=== PATIENT | male | born 1975 | race Caucasian/White ===

== ENCOUNTER 2017-04-02 02:39 | Emergency (ER) | payer OTHER ==
[2017-04-02 03:05] VITALS: BP 143/91; PULSE 80; TEMP 97.8; BMI 21.1
--- NOTE | 2017-04-02 03:08 | PDOC ---
History of Present Illness - General Chief Complaint: Injury Stated Complaint: LFT ELBOW INJURY-[employer] Time Seen by Provider: 04/02/17 02:57 - History of Present Illness Initial Comments: 04/02/17 03:06 CHIEF COMPLAINT: left elbow HISTORY OF PRESENT ILLNESS: 41 yo M [employer] with hx of asthma presents to ED s/p "hitting my left elbow on a car." Patient reports he "can do everything and move my arm without pain, but earlier when I accidentally hit my elbow the wrong way, it really hurt." No recent travel or sick contacts. PAST MEDICAL HISTORY: Denies past medical history FAMILY HISTORY: Denies SOCIAL HISTORY: Denies tobacco, alcohol, illicit drug use. SURGICAL HISTORY: Denies ALLERGIES: No known drug allergies REVIEW OF SYSTEMS General/Constitutional: Denies fever or chills. Denies weakness, weight change. HEENT: Denies change in vision. Denies ear pain or discharge. Denies sore throat. Cardiovascular: Denies chest pain or shortness of breath. Respiratory: Denies cough, wheezing, or hemoptysis. Gastrointestinal: Denies nausea, vomiting, diarrhea or constipation. Denies rectal bleeding. Genitourinary: Denies dysuria, frequency, or change in urination. Musculoskeletal: Denies joint or muscle swelling or pain. Denies neck or back pain. Skin and breasts: Denies rash or easy bruising. PHYSICAL EXAM General Appearance: Well-appearing, appropriately dressed. No apparent distress , no intoxication. HEENT: EOMI, PERRLA, normal ENT inspection, normal voice, TMs normal, pharynx normal. No conjunctival pallor. No photophobia, scleral icterus. Neck: Supple. Trachea midline. No tenderness, rigidity, carotid bruit, stridor , lymphadenopathy, or thyromegaly. Respiratory/Chest: Lungs CTAB. No shortness of breath, chest tenderness, respiratory distress, accessory muscle use. No crackles, rales, rhonchi, stridor , wheezing, dullness Cardiovascular: RRR. S1, S2. No JVD, murmur, bradycardia, tachycardia. Vascular Pulses: Dorsalis-Pedis (R): 2+, Dorsalis-Pedis (L): 2+ Gastrointestinal/Abdominal: Normal bowel sounds. Abdomen soft, non-distended. No tenderness or rebound tenderness. No organomegaly, pulsatile mass, guarding , hernia, hepatomegaly, splenomegaly. Lymphatic: No adenopathy, tenderness. Musculoskeletal/Extremities: Normal inspection. FROM of all extremities, normal capillary refill. Pelvis Stable. No CVA tenderness. No tenderness to extremities, pedal edema, swelling, erythema or deformity. Integumentary: Appropriate color, dry, warm. 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 Fully oriented, alert. Appropriate mood/affect. Motor strength 5/5. No appreciable EOM palsy, facial droop or sensory deficit. Past History - Past Medical History Allergies/Adverse Reactions: Allergies Allergy/AdvReac Type Severity Reaction Status Date / Time No Known Allergies Allergy Verified 04/02/17 03:24 Home Medications: Ambulatory Orders Albuterol Sulfate Inhaler - [Ventolin Hfa Inhaler -] 1 puff IH PRN PRN 04/02/17 Ibuprofen 600 mg PO TID PRN #21 tablet 04/02/17 Asthma: Yes - Immunization History Immunization Up to Date: Yes - Psycho/Social/Smoking Cessation Hx Anxiety: No Suicidal Ideation: No Smoking History: Never smoked Have you smoked in the past 12 months: No Information on smoking cessation initiated: No Hx Alcohol Use: No Drug/Substance Use Hx: No Substance Use Type: Alcohol *Physical Exam - Vital Signs Last Vital Signs Temp Pulse Resp BP Pulse Ox 97.8 F 80 16 143/91 97 04/02/17 03:03 04/02/17 03:03 04/02/17 03:03 04/02/17 03:03 04/02/17 03:03 ED Treatment Course - RADIOLOGY Radiology Studies Ordered: Category Date Time Status ELBOW-LEFT [RAD] Stat Radiology 04/02/17 03:06 Ordered Medical Decision Making - Medical Decision Making 04/02/17 03:08 41 yo M [employer] with hx of asthma presents to ED s/p "hitting my left elbow on a car." -L elbow x-ray Patient refuses pain medication at this time, stating "it only hurts when I hit it the wrong way." *DC/Admit/Observation/Transfer Diagnosis at time of Disposition: Elbow injury - Discharge Dispostion Disposition: HOME Condition at time of disposition: Stable Admit: No - Prescriptions Prescriptions: Ibuprofen 600 mg PO TID PRN #21 tablet PRN Reason: Pain - Referrals Referrals: Stewart Beach MD [Staff Physician] - - Patient Instructions Printed Discharge Instructions: DI for Elbow Pain Additional Instructions: Please take medication as prescribed. If your pain persists past 3-4 days, please follow up with orthopedics for further evaluation (referral provided). If you experience any worsening pain; redness, warmth, or swelling to your elbow , or develop any fever, nausea, vomiting, or any new or worsening symptoms, please return to the ER.
--- NOTE | 2017-04-02 03:08 | PDOC ---
*Physical Exam - Vital Signs Last Vital Signs Temp Pulse Resp BP Pulse Ox 97.8 F 80 16 143/91 97 04/02/17 03:03 04/02/17 03:03 04/02/17 03:03 04/02/17 03:03 04/02/17 03:03 Medical Decision Making - Medical Decision Making 04/02/17 03:08 agree with care from AMARIS Hoffman *DC/Admit/Observation/Transfer Diagnosis at time of Disposition: Elbow injury - Discharge Dispostion Disposition: HOME - Prescriptions Prescriptions: Ibuprofen 600 mg PO TID PRN #21 tablet PRN Reason: Pain - Referrals Referrals: Stewart Beach MD [Staff Physician] - - Patient Instructions Printed Discharge Instructions: DI for Elbow Pain Additional Instructions: Please take medication as prescribed. If your pain persists past 3-4 days, please follow up with orthopedics for further evaluation (referral provided). If you experience any worsening pain; redness, warmth, or swelling to your elbow , or develop any fever, nausea, vomiting, or any new or worsening symptoms, please return to the ER.
== END 2017-04-02 04:31 | disposition home or self-care (01) ==
LOC: JER 02:39
DX: S59.802A Other specified injuries of left elbow, initial encounter (principal); V48.3XXA Unspecified car occupant injured in noncollision transport accident in nontraffic accident, initial encounter; Y92.488 Other paved roadways as the place of occurrence of the external cause; Y99.0 Civilian activity done for income or pay; Y93.89 Activity, other specified
CPT/HCPCS: 73070-TC-LT; 99282-25

== ENCOUNTER 2017-06-17 04:02 | Emergency (ER) | payer OTHER ==
[2017-06-17] MEDS ORDERED: KETOROLAC TROMETHAMINE 60 MG/2 ML VIAL IM ONE (04:18)
[2017-06-17] MEDS ORDERED: KETOROLAC TROMETHAMINE 60 MG/2 ML VIAL ONE (04:20)
[2017-06-17 04:21] VITALS: BP 96/63; PULSE 77; TEMP 98.1; BMI 34.5
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
== END 2017-06-17 05:50 | disposition home or self-care (01) ==
LOC: JER 04:02
PROC: 3E0233Z Introduction of Anti-inflammatory into Muscle, Percutaneous Approach (ICD-10-PCS; principal; 2017-06-17)
DX: S46.811A Strain of other muscles, fascia and tendons at shoulder and upper arm level, right arm, initial encounter (principal); X50.0XXA Overexertion from strenuous movement or load, initial encounter; X50.9XXA Other and unspecified overexertion or strenuous movements or postures, initial encounter; Y93.F9 Activity, other caregiving; Y92.89 Other specified places as the place of occurrence of the external cause; Y99.0 Civilian activity done for income or pay
CPT/HCPCS: 73030-TC-RT; 99282-25

== ENCOUNTER 2018-03-22 03:22 | Emergency (ER) | payer OTHER ==
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
[2018-03-22 05:46] VITALS: BP 136/79; PULSE 81; TEMP 98.2; BMI 26.4
== END 2018-03-22 05:56 | disposition home or self-care (01) ==
LOC: JER 03:22
DX: S93.491A Sprain of other ligament of right ankle, initial encounter (principal); W18.30XA Fall on same level, unspecified, initial encounter; Y35.811A Legal intervention involving manhandling, law enforcement official injured, initial encounter; Y93.89 Activity, other specified; Y92.89 Other specified places as the place of occurrence of the external cause; Y99.0 Civilian activity done for income or pay
CPT/HCPCS: 73610-TC-RT-FY; 73630-TC-RT-FY; 99281-25

== ENCOUNTER 2018-04-23 03:19 | Emergency (ER) | payer OTHER ==
[2018-04-23 03:54] VITALS: BP 132/96; PULSE 93; TEMP 98.5; BMI 35.2
[2018-04-23] MEDS ORDERED: TETANUS AND DIPHTHERIA TOXOID 0.5 ML DISP.SYRIN IM ONE (04:00)
[2018-04-23] MEDS ORDERED: AMOX TR/POT CLAV 875MG/125MG TABLETS (FP) PO ONE (04:00)
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
[2018-04-23] MEDS ORDERED: AMOX TR/POT CLAV 875MG/125MG TABLETS (FP) ONE (04:07)
[2018-04-24 06:06] LABS: HEPATITIS B CORE ANTIBODY,IGM Negative (Negative)
[2018-04-25 00:07] LABS: HEP B CORE AB, IGM Negative (Negative); HEP B CORE AB, TOT Negative (Negative)
== END 2018-04-23 05:05 | disposition home or self-care (01) ==
LOC: JER 03:19
PROC: 3E0234Z Introduction of Serum, Toxoid and Vaccine into Muscle, Percutaneous Approach (ICD-10-PCS; principal; 2018-04-23)
DX: S40.812A Abrasion of left upper arm, initial encounter (principal); S59.901A Unspecified injury of right elbow, initial encounter; Y35.891A Legal intervention involving other specified means, law enforcement official injured, initial encounter; S80.11XA Contusion of right lower leg, initial encounter; X58.XXXA Exposure to other specified factors, initial encounter; Y93.89 Activity, other specified; Y92.9 Unspecified place or not applicable; Y99.0 Civilian activity done for income or pay
CPT/HCPCS: 36415; 86702; 86704; 86705; 86706; 86707; 87350; 99283-25

== ENCOUNTER 2018-06-12 03:11 | Emergency (ER) | payer OTHER ==
--- NOTE | 2018-06-12 03:18 | PDOC ---
History of Present Illness <Kevin Max - Last Filed: 06/12/18 04:24> - History of Present Illness Initial Comments: 42yo M with no significant PMH presenting with ankle pain. Patient was walking when he tripped over a pothole and rolled his ankle. He reports ambulating immediately after the incident. Endorses 5/10 pain on the lateral malleolus. Had similar injury in March from which he recovered appropriately. Denies falling , LOC, nausea, or vomiting. No fevers, chills, chest pain, or shortness of breath. <ChaCat - Last Filed: 06/12/18 04:31> - General Stated Complaint: PAIN, RT ANKLE-YPD Time Seen by Provider: 06/12/18 03:18 Past History <WinterKevin - Last Filed: 06/12/18 04:24> - Past Medical History Asthma: Yes COPD: No - Immunization History Immunization Up to Date: Yes - Suicide/Smoking/Psychosocial Hx Smoking History: Never smoked Have you smoked in the past 12 months: No Hx Alcohol Use: No Drug/Substance Use Hx: No Substance Use Type: Alcohol <ChaCat - Last Filed: 06/12/18 04:31> - Past Medical History Allergies/Adverse Reactions: Allergies Allergy/AdvReac Type Severity Reaction Status Date / Time No Known Allergies Allergy Verified 06/12/18 03:21 Home Medications: Ambulatory Orders Albuterol Sulfate Inhaler - [Ventolin Hfa Inhaler -] 1 puff IH PRN PRN 04/02/17 Ibuprofen 600 mg PO QID PRN #14 tablet 06/17/17 Review of Systems - Review of Systems Comments:: Constitutional: no fever, no chills Cardiovascular: no chest pain Respiratory: no shortness of breath Gastrointestinal: no abdominal pain, no nausea, no vomiting Musculoskeletal: no myalgia, +R. ankle pain Skin: no rash, no itching Neurologic: no headache, no dizziness <ChaCat - Last Filed: 06/12/18 04:31> *Physical Exam - Vital Signs Last Vital Signs Temp Pulse Resp BP Pulse Ox 97.6 F 77 20 118/80 100 06/12/18 03:21 06/12/18 03:21 06/12/18 03:21 06/12/18 03:21 06/12/18 03:21 <Kevin Max - Last Filed: 06/12/18 04:24> - Physical Exam Comments: General: Awake, alert, and fully oriented, in no acute distress Head: no signs of trauma Eyes: EOMI, sclera anicteric Neck: Normal ROM, supple Lungs: Lungs clear, Normal breath sounds Cardio: Regular rhythm, S1 and S2 present Abdomen: Soft, nontender Extremities: R. ankle swollen and tender to palpation on the anterior aspect of the lateral malleolus. Normal range of motion, strength, and sensation. Distal pulses present. SKIN: Warm, Dry, normal turgor Neurologic: Cranial nerves II through XII grossly intact. Normal speech <Cat Eubanks - Last Filed: 06/12/18 04:31> Medical Decision Making - Medical Decision Making 42yo M with no significant PMH presenting with ankle pain. Likely ankle sprain Will image to rule out fracture Reports 5/10 pain. Patient does not want to take anything for his pain. 06/12/18 03:52 Radiographs negative for acute pathology. No fractures or breaks. Dayron bandage applied to R. ankle. Will discharge. Patient amenable to plan. 06/12/18 04:30 <Vianey EubanksCat - Last Filed: 06/12/18 04:31> *DC/Admit/Observation/Transfer <Kevin Max - Last Filed: 06/12/18 04:24> <Cat Eubanks - Last Filed: 06/12/18 04:31> Diagnosis at time of Disposition: Ankle sprain - Discharge Dispostion Disposition: HOME Condition at time of disposition: Stable - Referrals Referrals: Orlando Menjivar MD [Primary Care Provider] - Johnny Em MD [Staff Physician] - - Patient Instructions Printed Discharge Instructions: DI for Ankle Sprain, How To Perform RICE (Rest , Ice, Compress, Elevate) Additional Instructions: You came into the ED for ankle pain. Imaging did not show any fractures or breaks. Perform R.I.C.E (rest, ice, compression, elevation) to facilitate your recovery. You can also take tylenol or motrin as needed for your pain. Follow the instructions on the medication bottle. If you continue to have pain after 2 days, make an appointment with our orthopedic surgeon. Call the number provided to make an appointment. - Post Discharge Activity Forms/Work/School Notes: Back to Work
[2018-06-12 03:25] VITALS: BP 118/80; PULSE 77; TEMP 97.6; BMI 33.9
--- NOTE | 2018-06-12 04:24 | PDOC ---
Attending Attestation - Resident Resident Name: Cat Eubanks - ED Attending Attestation I have performed the following: I have examined & evaluated the patient, The case was reviewed & discussed with the resident, I agree w/resident's findings & plan, Exceptions are as noted - HPI HPI: 06/12/18 04:22 42 M with R ankle pain after inverting it. Pt stepped in pothole and turned his foot inward. Denies crack or popping sensation. Pt ambulatory after accident. Now reports some pain and swelling. Denies fall. No headstrike/LOC. No other injury. - Physicial Exam PE: 06/12/18 04:23 "GENERAL: Awake, alert, and fully oriented, in no acute distress. HEAD: No signs of trauma EYES: PERRLA, EOMI, sclera anicteric, conjunctiva clear ENT: Auricles normal inspection, hearing grossly normal, nares patent, oropharynx clear without exudates. Moist mucosa NECK: Nontender, no stepoffs, Normal ROM, supple, no lymphadenopathy, JVD, or masses LUNGS: Breath sounds equal, clear to auscultation bilaterally. No wheezes, and no crackles HEART: Regular rate and rhythm, normal S1 and S2, no murmurs, rubs or gallops ABDOMEN: Soft, nontender, normoactive bowel sounds. No guarding, no rebound. No masses EXTREMITIES: + R ankle with mild effusion near lateral malleolus, no bony tenderness NEUROLOGICAL: Cranial nerves II through XII intact. 5/5 strength and sensation in all extremities, Normal speech, normal gait, normal cerebellar function SKIN: Warm, Dry, normal turgor, no rashes or lesions noted. - Medical Decision Making 06/12/18 04:23 42 M with R ankle injury. LIkely sprain. - XR negative on my read - Will DC with SALLY wrap and ortho f/u Pt is well appearing, with normal vitals. Clinically stable for DC at this time. I discussed the physical exam findings, ancillary test results and final diagnoses with the patient. I answered all of the patient's questions. The patient was satisfied with the care received and felt comfortable with the discharge plan and treatment plan. The patient agrees to follow up with the primary care physician within 24-72 hours.
== END 2018-06-12 04:29 | disposition home or self-care (01) ==
LOC: JER 03:11
DX: S93.401A Sprain of unspecified ligament of right ankle, initial encounter (principal); Y35.891A Legal intervention involving other specified means, law enforcement official injured, initial encounter; Y93.89 Activity, other specified; Y92.410 Unspecified street and highway as the place of occurrence of the external cause; Y99.0 Civilian activity done for income or pay; J45.909 Unspecified asthma, uncomplicated
CPT/HCPCS: 73610-TC-RT-FY; 99283-25

== ENCOUNTER 2019-06-27 19:40 | Emergency (ER) | payer OTHER ==
[2019-06-27 19:46] VITALS: BP 122/88; PULSE 73; TEMP 98.3; BMI 30.9
--- NOTE | 2019-06-27 20:31 | PDOC ---
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 Patient reported he was helping internist medical doctor md left-sided body and strained her right shoulder while doing so this evening. Patient reported had mild pain to anterior aspect of right shoulder which has been worsening. Patient describes pain as throbbing pain in the anterior shoulder region. Patient report previous injury to right shoulder 2 years ago on the job which he sprained shoulder .. Patient with reported increased pain to right shoulder with elevation of right arm. Denies numbness or tingling sensation. Denies weakness in the right shoulder. Denies any other symptoms Occurred: reports: this evening Past History - Past Medical History Allergies/Adverse Reactions: Allergies Allergy/AdvReac Type Severity Reaction Status Date / Time No Known Allergies Allergy Verified 06/27/19 19:43 Home Medications: Ambulatory Orders Albuterol Sulfate Inhaler - [Ventolin Hfa Inhaler -] 1 puff IH PRN PRN 04/02/17 Ibuprofen 600 mg PO QID PRN #14 tablet 06/17/17 Methocarbamol [Robaxin -] 500 mg PO BID #14 tablet 06/27/19 Naproxen 500 mg PO BID PRN #20 tablet 06/27/19 Asthma: Yes COPD: No - Immunization History Immunization Up to Date: Yes - Psycho Social/Smoking Cessation Hx Smoking History: Never smoked Have you smoked in the past 12 months: No Hx Alcohol Use: No Drug/Substance Use Hx: No Substance Use Type: Alcohol Review of Systems - Review of Systems Able to Perform ROS?: Yes Is the patient limited Maori proficient: No Constitutional: No: Malaise, Weakness HEENTM: No: Symptoms Reported Respiratory: No: Symptoms reported Cardiac (ROS): No: Symptoms Reported ABD/GI: No: Symptoms Reported Musculoskeletal: Yes: Symptoms Reported, See HPI, Joint Pain (right shoulder), Muscle Pain (anterior right shoulder). No: Muscle Weakness Integumentary: No: Symptoms Reported Neurological: No: Symptoms reported, Numbness, Paresthesia, Tingling, Weakness All Other Systems: Reviewed and Negative *Physical Exam - Vital Signs Last Vital Signs Temp Pulse Resp BP Pulse Ox 98.3 F 73 18 122/88 98 06/27/19 19:43 06/27/19 19:43 06/27/19 19:43 06/27/19 19:43 06/27/19 19:43 - Physical Exam Comments: 06/27/19 20:31 GENERAL: Well developed, well nourished. Awake and alert in mild acute distress. PULMONARY: No evidence of respiratory distress. ABDOMINAL: Soft. Non-tender. Non-distended. No rebound or guarding. No organomegaly. Normoactive bowel sounds MUSCULOSKELETAL : Moderate tenderness to anterior aspect of right shoulder over the glenoid fossa which is worse with abduction of right shoulder. 5 out of 5 muscle strength right shoulder and upper. Normal sensory to right shoulder with no radiculopathy. No bony deformities SKIN: Warm and dry. Normal capillary refill. . NEUROLOGICAL: Alert, awake, appropriate. No motor deficits in the lower extremities. Gait is normal without ataxia. PSYCHIATRIC: Cooperative. Good eye contact. Appropriate mood and affect. 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 Patient reported he was helping internist medical doctor md left-sided body and strained her right shoulder while doing so this evening. Patient reported had mild pain to anterior aspect of right shoulder which has been worsening. Patient describes pain as throbbing pain in the anterior shoulder region. Patient report previous injury to right shoulder 2 years ago on the job which he sprained shoulder .. Patient with reported increased pain to right shoulder with elevation of right arm. Denies numbness or tingling sensation. Denies weakness in the right shoulder. Denies any other symptoms Exam significant for moderate tenderness to right anterior shoulder over the glenoid fossa which is worse when elevation of right arm against resistance or abduction of right shoulder. Symptoms likely shoulder sprain versus less likely shoulder dislocation. X-ray right shoulder ordered to rule out acute shoulder pathology. 06/27/19 20:47 X-ray of right shoulder shows no acute dislocation or pathology. Patient symptoms likely shoulder sprain. Patient stable for discharge on naproxen as needed for pain and Robaxin muscle relaxer with orthopedics follow-up as needed Discharge - Discharge Information Problems reviewed: Yes Clinical Impression/Diagnosis: Right shoulder strain Qualifiers: Encounter type: initial encounter Qualified Code(s): S46.911A - Strain of unspecified muscle, fascia and tendon at shoulder and upper arm level, right arm , initial encounter Shoulder pain, right Qualifiers: Chronicity: acute Qualified Code(s): M25.511 - Pain in right shoulder Condition: Stable Disposition: HOME - Admission No - Additional Discharge Information Prescriptions: Methocarbamol [Robaxin -] 500 mg PO BID #14 tablet Naproxen 500 mg PO BID PRN #20 tablet PRN Reason: shoulder pain - Follow up/Referral Referrals: Nirmal Lopez DO [Staff Physician] - - Patient Discharge Instructions Patient Printed Discharge Instructions: DI for Shoulder Sprain Additional Instructions: Your shoulder x-ray shows no acute fracture or dislocation. Your pain is likely caused by shoulder sprain. Apply cold therapy today and switch to her therapy as needed for pain. No heavy lifting in the right for at least 3 days. Take prescribed medication as needed for pain. Follow-up referred to orthopedics if no improvement in 5 days. - Post Discharge Activity Work/Back to School Note: Back to Work
[2019-06-27] MEDS ORDERED: NAPROXEN 500 MG TABLET (FP) PO ONE (20:43)
[2019-06-27] MEDS ORDERED: NAPROXEN 500 MG TABLET (FP) ONE (20:46)
== END 2019-06-27 20:50 | disposition home or self-care (01) ==
LOC: JERFT 19:40
DX: S46.811A Strain of other muscles, fascia and tendons at shoulder and upper arm level, right arm, initial encounter (principal); X50.0XXA Overexertion from strenuous movement or load, initial encounter; Y93.89 Activity, other specified; Y92.89 Other specified places as the place of occurrence of the external cause; Y99.0 Civilian activity done for income or pay
CPT/HCPCS: 73030-TC-RT-FY; 99281-25

== ENCOUNTER 2020-05-25 21:28 | Emergency (ER) | payer OTHER ==
[2020-05-25 21:41] VITALS: BP 142/105; PULSE 80; TEMP 98.7; BMI 33.7
--- NOTE | 2020-05-25 21:42 | PDOC ---
History of Present Illness - General Chief Complaint: Pain Stated Complaint: "i jammed my right thumb in the car door" Time Seen by Provider: 05/25/20 21:39 History Source: Patient Exam Limitations: No Limitations - History of Present Illness Initial Comments: 05/25/20 21:42 This is a 44-year-old male who comes in complaining of pain in his right thumb and index finger. 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 Patient said he jammed his finger well on duty on the door jam of his car. Patient otherwise denies any other injuries or pain. Allergies: as per nursing notes Past Medical History: none Social history: Lives with family. No smoking. No alcohol. No illicit drugs. Surgical history: None General: No fevers or chills, no weakness, no weight loss HEENT: No change in vision. No sore throat,. No ear pain CardioVascular: no chest discomfort. No shortness of breath Respiratory:No cough, or wheezing. Gastrointestinal: no nausea, vomiting, diarrhea or constipation, No rectal bleeding Genitourinary: No dysuria, hematuria, or frequency Musculoskeletal: Pain in right thumb and index finger Neurologic: No headache, vertigo, dizziness or loss of consciousness Psychiatric: nor depression Skin: No rashes or easy bruising Endocrine: no increased thirst or abnormal weight change Allergic: no skin or latex allergy All other systems reviewed and normal GENERAL: The patient is awake, alert, and fully oriented, in no acute distress. HEENT:Head is normal with no signs of trauma. Eyes: Pupils equal, round and reactive to light, Ears, and Throat are normal. Neck is supple. No Lymphadenopathy. EXTREMITIES: Right thumb there is tenderness on palpation of the distal phalanx there is no ecchymosis swelling or deformity. There is full range of motion. Neurovascular is intact. Right index finger there is some mild tenderness on the tip of the finger otherwise normal exam. There is no swelling or ecchymosis. NEUROLOGICAL: Normal speech, normal gait. PSYCH: Normal mood, normal affect. SKIN: Warm, Dry, normal turgor, no rashes or lesions noted. 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 Patient's x-rays were negative for any acute pathology. Patient given a thumb splint and discharged. Patient did not want anything for pain. Past History - Medical History Allergies/Adverse Reactions: Allergies Allergy/AdvReac Type Severity Reaction Status Date / Time No Known Allergies Allergy Verified 05/25/20 21:31 Asthma: Yes COPD: No - Immunization History Immunization Up to Date: Yes - Psycho-Social/Smoking History Smoking History: Never smoked Have you smoked in the past 12 months: No Discharge - Discharge Information Problems reviewed: Yes Clinical Impression/Diagnosis: Jammed interphalangeal joint of finger of right hand, Pain of right thumb, Strain of right index finger Condition: Stable Disposition: HOME - Admission No - Follow up/Referral - Patient Discharge Instructions Additional Instructions: Tylenol or Motrin as needed for pain. Wear the splint as needed for comfort. Return to the emergency department immediately with ANY new, persistent or worsening symptoms. Continue any medications as previously prescribed by your physician. You should follow up with your primary doctor as soon as possible regarding today's emergency department visit. . Please make sure your doctor reviews the results of your emergency evaluation. Thank you for coming to the Emergency Department today for your care. It was a pleasure to see you today. Please note that your evaluation is INCOMPLETE until you follow-up with your doctor. - Post Discharge Activity
== END 2020-05-25 22:30 | disposition home or self-care (01) ==
LOC: FER 21:28
DX: S62.621A Displaced fracture of middle phalanx of left index finger, initial encounter for closed fracture (principal)
CPT/HCPCS: 73140-TC-RT-FY; 99283-25